=== PATIENT | female | born 1940 | race Two or more races ===

== ENCOUNTER → 2020-10-12 | Outpatient (CLI) | payer OTHER | END | disposition home or self-care (01) | LOC: OFIC 805 15:15 | PROVIDERS: ATTEND Otolaryngology Otology & Neurotology | DX: H60.543 Acute eczematoid otitis externa, bilateral (principal); H61.22 Impacted cerumen, left ear; H90.3 Sensorineural hearing loss, bilateral; H93.13 Tinnitus, bilateral ==

== ENCOUNTER 2021-01-05 07:15 | Inpatient (IN) | payer OTHER ==
[~2021-01-05] VITALS: Ht 152.4 cm; Wt 57.2 kg
[2021-01-05] MEDS ORDERED: TOPROL XL25 M1 PO (09:06)
[2021-01-05] MEDS ORDERED: ADULT LOW DOSE81 M1 PO (09:06)
[2021-01-05] MEDS ORDERED: COZAAR50 MG PO (09:06)
[2021-01-05] MEDS ORDERED: MECLIZINE HCL12.5 MG PO (09:07)
[2021-01-05] MEDS ORDERED: LIPITOR40 MG PO (09:07)
[2021-01-12] MEDS ORDERED: LOSARTAN-HCTZ1 EAC2 (08:32)
[2021-01-12] MEDS ORDERED: LOSARTAN POTAS100 MG (10:24)
== END 2021-01-15 15:53 | disposition home health service (06) | DRG 470 ==
LOC: O/R 01-12 06:00 → SURG 01-12 06:00 → SURH 01-12 07:45 → SURG 01-12 10:49
PROVIDERS: ADMIT Orthopaedic Surgery; ATTEND Orthopaedic Surgery
PROC: 0SRC0J9 Replacement of Right Knee Joint with Synthetic Substitute, Cemented, Open Approach (ICD-10-PCS; principal; 2021-01-12 10:15)
DX: M17.11 Unilateral primary osteoarthritis, right knee (principal); M85.661 Other cyst of bone, right lower leg; I11.9 Hypertensive heart disease without heart failure; I25.10 Atherosclerotic heart disease of native coronary artery without angina pectoris